=== PATIENT | female | born 1995 | race African-American/Black ===

== ENCOUNTER 2017-03-30 12:14 | Emergency (ER) | payer OTHER ==
[~2017-03-30] VITALS: Ht 167.6 cm; Wt 136.0 kg
[2017-03-30 12:16] VITALS: TEMP 37.2; Ht 167.6 cm; Wt 136.0 kg
[2017-03-30] MEDS ORDERED: SERT-234 PO (12:34)
[2017-03-30] MEDS ORDERED: SERT25TA PO (12:34)
[2017-03-30] MEDS ORDERED: NORE-24 PO (12:34)
[2017-03-30] MEDS ORDERED: SODIUM CHLORIDE 0.9% 1000ML 1,000 ML IV ONE (13:24)
[2017-03-30] MEDS ORDERED: KETOROLAC TROMETHAMINE 30 MG/ML VIAL IV STA (13:24)
[2017-03-30] MEDS ORDERED: SODIUM CHLORIDE 0.9% 1000ML 1,000 ML IV STA (13:24)
[2017-03-30 13:48] LABS: BASO % 0.2 %; BASO ABS # 0.01 K/uL (0-0.2); COMPLETE YES; EOS % 1.1 %; HEMATOCRIT 34.6 % (37-47); IG% 0.2 %; LYMPH % 40.5 %; LYMPH ABS # 2.55 K/uL (1.2-3.4); MEAN CELL VOLUME 82.6 fL (80-100); MEAN CORPUSCULAR HEMOGLOBIN 27.4 pg (25-34); MEAN CORPUSCULAR HGB CONC 33.2 g/dl (32-36); MEAN PLATELET VOLUME 9.7 fL (7.4-10.4); MONO % 4.8 %; NEUT % 53.2 %; PLATELET COUNT 233 K/uL (130-400); RED BLOOD COUNT 4.19 M/uL (4.2-5.4)
[2017-03-30 14:06] LABS: BUN/CREATININE RATIO 8.3 (10-20); CALCIUM 9.1 mg/dl (8.5-10.1); CREATININE 0.9 mg/dl (0.60-1.20); POTASSIUM 4.3 mmol/L (3.5-5.1)
[2017-03-30 14:09] LABS: PREG INTERNAL NEGATIVE QC NEG CLEAR BACKGROUND; PREG INTERNAL POSITIVE QC POS CONTROL LINE
--- NOTE | 2017-03-30 15:39 | EMERGENCY ROOM VISIT NOTE ---
History Report prepared by Salvatore: Jillian Javier Under the Supervision of: Dr. Coleman Jo M.D. First contact with patient: 13:14 Chief Complaint: HEADACHE Stated Complaint: ONGOING HEADACHES, NUMBING HANDS History of Present Illness The patient is a 21 year old female who presents to the Emergency Room with complaints of a constant headache for the past week. Her pain is located behind her eyes and in her temples bilaterally. She rates her pain as a 7/10 in severity. Her symptoms started one morning when she woke up and have been constant ever since. The patient states that she has been experiencing numbness and tingling in her hands bilaterally for the past month. Laying down exacerbates her symptoms. She has been taking ibuprofen for her symptoms without any relief. She had an episode of diffuse abdominal pain yesterday that lasted for 30 minutes and then resolved. She denies any recent trauma or injury. The patient denies visual symptoms, fevers, chills, sore throat, facial pain, neck pain, chest pain, shortness of breath, and any chance of . Source of History: patient Onset: 1 week ago Position: head Symptom Intensity: 7/10 Timing: constant Modifying Factors (Worsening): other (laying down) Associated Symptoms: + abdominal pain, + numbness (in hands bilaterally), No fevers, No chills, No sorethroat, No neck pain, No chest pain, No SOB Review of Systems See HPI for pertinent positives & negatives. A total of 10 systems reviewed and were otherwise negative. Past Medical & Surgical Medical Problems: (1) No significant medical problems Old medical records were reviewed. Nurse's notes were reviewed and I agree with. Family History No pertinent history stated. Social History Smoking Status: Never Smoker Marital Status: single Housing Status: lives with roommate Occupation Status: [employer] student Current/Historical Medications Scheduled Amoxicillin & Pot Clavulanate (Augmentin 875-125 mg), 875 MG PO BID Ethinyl Estradiol/Norethindr (Microgestin 1.5MG/30MG), 1 TAB PO DAILY Sertraline (Zoloft), 25 MG PO DAILY Sertraline (Zoloft), 100 MG PO DAILY Allergies Coded Allergies: No Known Allergies (Unverified , 03/30/17) Physical Exam Vital Signs Date Time Temp Pulse Resp B/P (MAP) Pulse Ox O2 Delivery O2 Flow Rate FiO2 03/30/17 16:58 63 16 174/119 100 03/30/17 14:21 69 18 151/115 98 Room Air 03/30/17 12:16 37.2 72 18 148/97 98 Room Air Physical Exam General: Well developed well nourished non ill appearing young female in no acute distress, breathing comfortably on room air. Normal speech HEENT: Normal cephalic atraumatic. Pupils are equal round and reactive to light. Extraocular movements are intact. Oropharynx is pink with moist mucous membranes. No swelling of the mouth lips or tongue. Neck: Supple with a midline trachea. No meningeal signs or stiffness, no JVD or bruits. No Stridor. Chest: Clear to auscultation bilaterally. No wheezes or rhonchi. No increased work of breathing. Heart: regular rate and rhythm. Abdomen: Soft nontender, nondistended without rebound guarding or rigidity. Extremities: No cyanosis clubbing or edema. No calf tenderness or assymetry Spine/Back. Non tender to palpation. No CVA tenderness Skin: Good turgor without rashes. Neurologic exam: Cranial nerves two through 12 are intact. Motor and sensation are intact and symmetrical throughout. Andi 15. Normal sensation to light though throughout, 2+ symmetrical reflexes in upper and lower extremities. Medical Decision & Procedures ER Provider Diagnostic Interpretation: Radiology results as stated below per my review and radiologist interpretation: HEAD WITHOUT CONTRAST (CT) CLINICAL HISTORY: 21 years-old Female with bilat frontal DELGADILLO. Acute headache without reported trauma. TECHNIQUE: Multiple axial CT images of the head were obtained without contrast. A dose lowering technique was utilized adhering to the principles of ALARA. CT DOSE: 720.95 mGycm COMPARISON: None. FINDINGS: No acute intracranial hemorrhage, midline shift, mass, large territorial ischemia or abnormal extra-axial collection. The calvarium is intact. The mastoid air cells, and middle ear cavities are clear. Mild left sphenoid sinus disease is noted with bubbly secretions. Soft tissues are unremarkable. Orbits are symmetric. IMPRESSION: 1. No acute intracranial abnormality. 2. Mild left sphenoid sinus disease. The above report was generated using voice recognition software. It may contain grammatical, syntax or spelling errors. Electronically signed by: Juaquin Lewis M.D. 03/30/2017 3:49 PM Dictated Date/Time: 03/30/2017 3:47 PM Laboratory Results 03/30/17 13:30 Red Blood Count 4.19, Mean Corpuscular Volume 82.6, Mean Corpuscular Hemoglobin 27.4, Mean Corpuscular Hemoglobin Concent 33.2, Mean Platelet Volume 9.7, Neutrophils (%) (Auto) 53.2, Lymphocytes (%) (Auto) 40.5, Monocytes (%) (Auto) 4.8, Eosinophils (%) (Auto) 1.1, Basophils (%) (Auto) 0.2, Neutrophils # (Auto) 3.36, Lymphocytes # (Auto) 2.55, Monocytes # (Auto) 0.30, Eosinophils # (Auto) 0.07, Basophils # (Auto) 0.01 03/30/17 13:30 Test 03/30/17 13:30 White Blood Count 6.30 K/uL (4.8-10.8) Red Blood Count 4.19 M/uL (4.2-5.4) Hemoglobin 11.5 g/dL (12.0-16.0) Hematocrit 34.6 % (37-47) Mean Corpuscular Volume 82.6 fL (80-100) Mean Corpuscular Hemoglobin 27.4 pg (25-34) Mean Corpuscular Hemoglobin Concent 33.2 g/dl (32-36) Platelet Count 233 K/uL (130-400) Mean Platelet Volume 9.7 fL (7.4-10.4) Neutrophils (%) (Auto) 53.2 % Lymphocytes (%) (Auto) 40.5 % Monocytes (%) (Auto) 4.8 % Eosinophils (%) (Auto) 1.1 % Basophils (%) (Auto) 0.2 % Neutrophils # (Auto) 3.36 K/uL (1.4-6.5) Lymphocytes # (Auto) 2.55 K/uL (1.2-3.4) Monocytes # (Auto) 0.30 K/uL (0.11-0.59) Eosinophils # (Auto) 0.07 K/uL (0-0.5) Basophils # (Auto) 0.01 K/uL (0-0.2) RDW Standard Deviation 41.8 fL (36.4-46.3) RDW Coefficient of Variation 13.8 % (11.5-14.5) Immature Granulocyte % (Auto) 0.2 % Immature Granulocyte # (Auto) 0.01 K/uL (0.00-0.02) Anion Gap 8.0 mmol/L (3-11) Est Creatinine Clear Calc Drug Dose 140.4 ml/min Estimated GFR () 105.9 Estimated GFR (Non- 91.4 BUN/Creatinine Ratio 8.3 (10-20) Calcium Level 9.1 mg/dl (8.5-10.1) Total Bilirubin 0.4 mg/dl (0.2-1) Direct Bilirubin 0.1 mg/dl (0-0.2) Aspartate Amino Transf (AST/SGOT) 29 U/L (15-37) Alanine Aminotransferase (ALT/SGPT) 48 U/L (12-78) Alkaline Phosphatase 39 U/L (45-117) Total Protein 7.8 gm/dl (6.4-8.2) Albumin 3.5 gm/dl (3.4-5.0) Lipase 121 U/L (73-393) Human Chorionic Gonadotropin, Qual NEG (NEG) Laboratory studies as stated above per my review. Medications Administered Medications (Trade) Dose Ordered Sig/Anil Route Start Time Stop Time Status Last Admin Dose Admin Sodium Chloride 1,000 ml @ 999 mls/hr Q1H1M STAT IV 03/30/17 13:24 03/30/17 14:24 DC 03/30/17 13:36 999 MLS/HR Sodium Chloride 1,000 ml @ 200 mls/hr Q5H ONCE IV 03/30/17 13:24 03/30/17 17:31 DC 03/30/17 14:49 200 MLS/HR Ketorolac Tromethamine (Toradol Inj) 30 mg NOW STAT IV 03/30/17 13:24 03/30/17 13:26 DC 03/30/17 13:36 30 MG Amoxicillin/ Clavulanate Potassium (Augmentin Tab) 875 mg ONE ONCE PO 03/30/17 16:30 03/30/17 16:31 DC 03/30/17 16:33 875 MG ED Course 1314: Past medical records reviewed. The patient was evaluated in room C10, and a complete history and physical examination were performed. 1324: Toradol 30 mg IV, NSS 1000 ml @ 200 mls/hr IV, NSS 1000 ml @ 999 mls/hr IV 1520: I updated the patient. She still has not had her CT. She is feeling better and requesting food. 1621: I reassessed the patient at this time. She is feeling better and resting comfortably. I discussed the results and treatment plan with the patient. I answered all pertaining questions that she had. She expressed understanding and verbalized agreement. The patient will be discharged home. 1630: Augmentin 875 mg PO Medical Decision Differential diagnoses includes migraine, tension headache, intracranial process , hemorrhage, electrolyte or metabolic abnormality. This patient comes in as described above. She is placed in room C 10. She's been having a headache for several days on both sides of her head she also has some tingling in her hands bilaterally she looks well on exam she appears in no distress she is her normal neurologic exam. She is nontoxic and non-lethargic. She has nothing to suggest meningitis or encephalitis. Her sinuses are not significant only tender. Blood work was obtained. She was hydrated with IV normal saline bolus as well as Toradol 30 mg IV. Her symptoms resolved. She has no white count or fever to suggest infection. She's had no acute electrolyte or metabolic abnormalities. She's no visual changes or anything to suggest ocular problems such as glaucoma or pseudotumor. I do not suspect aneurysm or venous sinus thrombosis. CAT scan of her head was unremarkable with exception of some possible mild sinus disease. I did put her on Augmentin to cover the possibility of this. She is to rest and drink plenty of fluids. She has no acute electrolyte or metabolic abnormalities. I encouraged to follow -up with [facility] for recheck. Her blood pressure was noted to be elevated however she tells me that is typical for her while she is in the hospital she is always elevated and it comes down. I do not think this likely causing her symptoms. She should have this rechecked when she is calm at her doctor's office and return if: Worsening symptoms, fever or chills, numbness wheezes, any new problems or concerns. She is happy the plan and discharged home. Medication Reconcilliation Current Medication List: was personally reviewed by me Blood Pressure Screening Patient's blood pressure: Elevated blood pressure Blood pressure disposition: Referred to PCP Impression Primary Impression: Frontal headache Additional Impression: Sinusitis Scribe Attestation The scribe's documentation has been prepared under my direction and personally reviewed by me in its entirety. I confirm that the note above accurately reflects all work, treatment, procedures, and medical decision making performed by me. Departure Information Dispostion Home / Self-Care Prescriptions Amoxicillin & Pot Clavulanate (Augmentin 875-125 mg) 1 Tab Tab 875 MG PO BID for 10 Days, #20 TAB Prov: Coleman Jo M.D. 03/30/17 Referrals No Doctor, Assigned (PCP) Forms HOME CARE DOCUMENTATION FORM, IMPORTANT VISIT INFORMATION Patient Instructions My [facility] Additional Instructions Rest. Drink plenty of fluids. Use ibuprofen 600 mg every 6 hours, take with food Use Augmentin 875 mg twice a day for 10 daysantibiotic for possible sinus disease Return to the ER if: Increasing pain, fever or chills, worsening of symptoms, numbness or weakness, neck pain, any new problems or concerns [facility]. You should also be blood pressure rechecked as it was found to be elevated today. Problem Qualifiers Additional Impression: Sinusitis Sinusitis location: unspecified location Chronicity: unspecified Qualified Codes: J32.9 - Chronic sinusitis, unspecified
--- NOTE | 2017-03-30 15:50 | DIAGNOSTIC IMAGING REPORT ---
HEAD WITHOUT CONTRAST (CT) CLINICAL HISTORY: 21 years-old Female with bilat frontal DELGADILLO. Acute headache without reported trauma. TECHNIQUE: Multiple axial CT images of the head were obtained without contrast. A dose lowering technique was utilized adhering to the principles of ALARA. CT DOSE: 720.95 mGycm COMPARISON: None. FINDINGS: No acute intracranial hemorrhage, midline shift, mass, large territorial ischemia or abnormal extra-axial collection. The calvarium is intact. The mastoid air cells, and middle ear cavities are clear. Mild left sphenoid sinus disease is noted with bubbly secretions. Soft tissues are unremarkable. Orbits are symmetric. IMPRESSION: 1. No acute intracranial abnormality. 2. Mild left sphenoid sinus disease. The above report was generated using voice recognition software. It may contain grammatical, syntax or spelling errors. Electronically signed by: Juauqin Lewis M.D. 03/30/2017 3:49 PM Dictated Date/Time: 03/30/2017 3:47 PM
[2017-03-30] MEDS ORDERED: AMOX875T PO (16:27)
[2017-03-30] MEDS ORDERED: AMOXICILLIN/CLAVULANATE TAB 875 MG TAB PO ONE (16:30)
[2017-03-30 16:58] VITALS: BP 174/119; PULSE 63; O2SAT 100
== END 2017-03-30 16:59 | disposition home or self-care (01) ==
LOC: C.EDB 12:16 → C.EDC 16:59
DX: R51 Headache (principal); J32.9 Chronic sinusitis, unspecified; Z79.3 Long term (current) use of hormonal contraceptives; Z79.899 Other long term (current) drug therapy

== ENCOUNTER 2017-08-31 12:26 | Emergency (ER) | payer OTHER ==
[~2017-08-31] VITALS: Ht 167.6 cm; Wt 136.0 kg
[~2017-08-31 12:26] MED LIST: NORE-104 PO; SERT-234 PO; SERT25TA PO
[2017-08-31 12:28] VITALS: TEMP 37; Ht 167.6 cm; Wt 136.0 kg
[2017-08-31] MEDS ORDERED: SPIR100T PO (12:48)
[2017-08-31] MEDS ORDERED: SODIUM CHLORIDE 0.9% 1000ML 1,000 ML IV STA (13:00)
[2017-08-31] MEDS ORDERED: KETOROLAC TROMETHAMINE 30 MG/ML VIAL IV STA (13:00)
--- NOTE | 2017-08-31 13:15 | EMERGENCY ROOM VISIT NOTE ---
History Report prepared by Salvatore: Tomi Black Under the Supervision of: Dr. Coleman Jo M.D. First contact with patient: 12:51 Chief Complaint: HEADACHE Stated Complaint: DIZZY,HEADACHE,FEEL LIKE FAINTING WHEN STANDING Nursing Triage Summary: pt to the ED with c/o DELGADILLO's with dizzy spells and feeling near syncopal when standing and "weird brain zaps" for 2-3 wks History of Present Illness The patient is a 22 year old female who presents to the Emergency Room with complaints of constant headache beginning two weeks ago. The patient localizes the pain to the temples. She states "I have been experiencing weird brain zaps" . She describes these as "feeling a few beats, and then it drops". The patient also complains of balance problems, dizziness, and lightheadedness. Her lightheadedness is worsened with standing. She has a history of carpal tunnel and has chronic weakness of her fingers which is unchanged. The patient denies chest pain, SOB, abdominal pain, black or bloody stool, vaginal bleeding, nausea , vomiting, diarrhea, or fevers. She has been eating normally. She has a history of headaches but states that her current pain is worse. The patient denies chance of . She notes that she recently had a cold. She denies recent travel. The patient has a history of anxiety and depression. She notes that she was recently weaned off of a medication for depression. She states that she has felt normal, and denies any suicidal thoughts. The patient notes that she has been very stressed with school recently. Source of History: patient Onset: Two weeks ago Position: head Quality: other ("weird brain zaps") Timing: constant Associated Symptoms: No fevers, No chest pain, No SOB, No nausea, No vomiting, No abdominal pain, No melena, No hematochezia, No diarrhea Note: The patient also complains of balance problems, dizziness, and lightheadedness. The patient denies vaginal bleeding. Review of Systems See HPI for pertinent positives & negatives. A total of 10 systems reviewed and were otherwise negative. Past Medical & Surgical Medical Problems: (1) Anxiety (2) Depression (3) No significant medical problems Old medical records were reviewed. Nurse's notes were reviewed and I agree with. Family History No pertinent family history stated. Social History Smoking Status: Never Smoker Marital Status: single Housing Status: lives with roommate Occupation Status: [employer] student Current/Historical Medications Scheduled Ethinyl Estradiol/Norethindr (Microgestin 1.5MG/30MG), 1 TAB PO DAILY Spironolactone (Aldactone), 100 MG PO QAM Allergies Coded Allergies: No Known Allergies (Unverified , 08/31/17) Physical Exam Vital Signs Date Time Temp Pulse Resp B/P (MAP) Pulse Ox O2 Delivery O2 Flow Rate FiO2 08/31/17 16:13 76 19 141/72 98 Room Air 08/31/17 14:30 77 17 142/111 99 Room Air 08/31/17 12:28 37.0 97 18 143/91 97 Physical Exam General: Non-ill appearing young female in no acute distress. HEENT: Normal cephalic atraumatic. Pupils are equal round and reactive to light. Extraocular movements are intact. Oropharynx is pink with moist mucous membranes. No swelling of the mouth lips or tongue. Neck: Supple with a midline trachea. No meningeal signs or stiffness, no JVD or bruits. No Stridor. Chest: Clear to auscultation bilaterally. No wheezes or rhonchi. No increased work of breathing. Heart: regular rate and rhythm. Abdomen: Soft nontender, nondistended without rebound guarding or rigidity. Extremities: No cyanosis clubbing or edema. No calf tenderness or assymetry Spine/Back. Non tender to palpation. No CVA tenderness Skin: Good turgor without rashes. Neurologic exam: Cranial nerves two through 12 are intact. Motor and sensation are intact and symmetrical throughout. No tremor. Finger to nose intact. Medical Decision & Procedures Laboratory Results 08/31/17 13:15 Red Blood Count 4.29, Mean Corpuscular Volume 81.4, Mean Corpuscular Hemoglobin 28.0, Mean Corpuscular Hemoglobin Concent 34.4, Mean Platelet Volume 9.8, Neutrophils (%) (Auto) 58.6, Lymphocytes (%) (Auto) 34.9, Monocytes (%) (Auto) 4.7, Eosinophils (%) (Auto) 1.6, Basophils (%) (Auto) 0.1, Neutrophils # (Auto) 4.10, Lymphocytes # (Auto) 2.44, Monocytes # (Auto) 0.33, Eosinophils # (Auto) 0.11, Basophils # (Auto) 0.01 08/31/17 13:15 Test 08/31/17 13:15 White Blood Count 7.00 K/uL (4.8-10.8) Red Blood Count 4.29 M/uL (4.2-5.4) Hemoglobin 12.0 g/dL (12.0-16.0) Hematocrit 34.9 % (37-47) Mean Corpuscular Volume 81.4 fL (80-100) Mean Corpuscular Hemoglobin 28.0 pg (25-34) Mean Corpuscular Hemoglobin Concent 34.4 g/dl (32-36) Platelet Count 252 K/uL (130-400) Mean Platelet Volume 9.8 fL (7.4-10.4) Neutrophils (%) (Auto) 58.6 % Lymphocytes (%) (Auto) 34.9 % Monocytes (%) (Auto) 4.7 % Eosinophils (%) (Auto) 1.6 % Basophils (%) (Auto) 0.1 % Neutrophils # (Auto) 4.10 K/uL (1.4-6.5) Lymphocytes # (Auto) 2.44 K/uL (1.2-3.4) Monocytes # (Auto) 0.33 K/uL (0.11-0.59) Eosinophils # (Auto) 0.11 K/uL (0-0.5) Basophils # (Auto) 0.01 K/uL (0-0.2) RDW Standard Deviation 40.0 fL (36.4-46.3) RDW Coefficient of Variation 13.5 % (11.5-14.5) Immature Granulocyte % (Auto) 0.1 % Immature Granulocyte # (Auto) 0.01 K/uL (0.00-0.02) Anion Gap 8.0 mmol/L (3-11) Est Creatinine Clear Calc Drug Dose 139.2 ml/min Estimated GFR () 105.2 Estimated GFR (Non- 90.8 BUN/Creatinine Ratio 10.2 (10-20) Calcium Level 9.2 mg/dl (8.5-10.1) Total Bilirubin 0.2 mg/dl (0.2-1) Direct Bilirubin mg/dl (0-0.2) Aspartate Amino Transf (AST/SGOT) 21 U/L (15-37) Alanine Aminotransferase (ALT/SGPT) 26 U/L (12-78) Alkaline Phosphatase 46 U/L (45-117) Total Protein 8.3 gm/dl (6.4-8.2) Albumin 3.4 gm/dl (3.4-5.0) Lipase 110 U/L (73-393) Thyroid Stimulating Hormone (TSH) 3.750 uIu/ml (0.300-4.500) Human Chorionic Gonadotropin, Qual NEG (NEG) Chemistry Specimen Hemolysis Laboratory studies as stated above per my review. Medications Administered Medications (Trade) Dose Ordered Sig/Anil Route Start Time Stop Time Status Last Admin Dose Admin Sodium Chloride 1,000 ml @ 999 mls/hr Q1H1M STAT IV 08/31/17 13:00 08/31/17 14:00 DC 08/31/17 13:14 999 MLS/HR Ketorolac Tromethamine (Toradol Inj) 30 mg NOW STAT IV 08/31/17 13:00 08/31/17 13:01 DC 08/31/17 13:14 30 MG ECG Per My Interpretation Indication: other (dizziness) Rate (beats per minute): 93 Rhythm: normal sinus Findings: no acute ischemic change, no ectopy, other (Poor baseline. ) ED Course 1252: Past medical records reviewed. The patient was evaluated in room A12B, and a complete history and physical examination were performed. 1300: Ordered Toradol Inj 30 mg IV, Sodium Chloride 1000 ml @ 999 mls/hr IV. 1556: Upon reevaluation, the patient is resting comfortably. I discussed the results and treatment plan with her. She verbalized agreement of the treatment plan. The patient was discharged home. Medical Decision Differentials include, but are not limited to; dizziness, migraine, dehydration , anxiety, cardiac disease, medication side effect, and electrolyte or metabolic abnormality. This patient comes in as described above. She was placed in room A12. She has dizziness with standing and gets headaches. She looks well on exam is non-ill- appearing. She has a normal neurologic exam. I have reviewed her records. I saw her in March for headaches and a CAT scan workup at that time was negative. She is afebrile and she has nothing to suggest meningitis or encephalitis. She has just weaned down from her depression medicine and this could possibly be causing her symptoms. she denies feeling depressed or suicidal or homicidal. IV access established was hydrated normal saline. CAT scan of her head was obtained as well as multiple blood testing. She was reassessed frequently. She felt better after receiving IV Toradol and fluids. EKG is unremarkable. Blood work is unremarkable. She will be discharged home. She should return if: recurrence of symptoms, worsening symptoms, any new problems or concerns. She is happy the plan and discharged to [facility]. Head Trauma GCS Score: 15 Medication Reconcilliation Current Medication List: was personally reviewed by me Blood Pressure Screening Patient's blood pressure: Elevated blood pressure Blood pressure disposition: Elevated BP felt to be situational Impression Primary Impression: Dizziness Additional Impressions: Medication side effect Headache Scribe Attestation The scribe's documentation has been prepared under my direction and personally reviewed by me in its entirety. I confirm that the note above accurately reflects all work, treatment, procedures, and medical decision making performed by me. Departure Information Dispostion Home / Self-Care Referrals No Doctor, Assigned (PCP) Forms HOME CARE DOCUMENTATION FORM, IMPORTANT VISIT INFORMATION Patient Instructions My [facility] Additional Instructions Rest. Drink plenty of fluids. May use ibuprofen 400 mg every 6 hours if needed Return if: Worsening symptoms, fever or chills, chest pain, shortness of breath , any new problems or concerns Problem Qualifiers
[2017-08-31 13:40] LABS: BASO % 0.1 %; BASO ABS # 0.01 K/uL (0-0.2); EOS % 1.6 %; EOS ABS # 0.11 K/uL (0-0.5); HEMATOCRIT 34.9 % (37-47); IG# 0.01 K/uL (0.00-0.02); LYMPH % 34.9 %; LYMPH ABS # 2.44 K/uL (1.2-3.4); MEAN CELL VOLUME 81.4 fL (80-100); MEAN CORPUSCULAR HGB CONC 34.4 g/dl (32-36); MEAN PLATELET VOLUME 9.8 fL (7.4-10.4); MONO % 4.7 %; MONO ABS # 0.33 K/uL (0.11-0.59); NEUT % 58.6 %; PLATELET COUNT 252 K/uL (130-400); RED CELL DISTRIBUTION WIDTH CV 13.5 % (11.5-14.5)
[2017-08-31 14:07] LABS: ALBUMIN 3.4 gm/dl (3.4-5.0); ALT/SGPT 26 U/L (12-78); BLOOD UREA NITROGEN 9 mg/dl (7-18); CALCIUM 9.2 mg/dl (8.5-10.1); CARBON DIOXIDE 23 mmol/L (21-32); GLUCOSE 109 mg/dl (70-99); LIPASE 110 U/L (73-393); POTASSIUM 4.2 mmol/L (3.5-5.1); SODIUM 136 mmol/L (136-145)
[2017-08-31 14:31] LABS: ALKALINE PHOSPHATASE 46 U/L (45-117); AST/SGOT 21 U/L (15-37); TOTAL PROTEIN 8.3 gm/dl (6.4-8.2)
[2017-08-31 16:13] VITALS: BP 141/72; PULSE 76; O2SAT 98
== END 2017-08-31 16:19 | disposition home or self-care (01) ==
LOC: C.EDB 12:28 → C.EDA 16:19
DX: R42 Dizziness and giddiness (principal); R51 Headache; T43.205A Adverse effect of unspecified antidepressants, initial encounter; Z79.3 Long term (current) use of hormonal contraceptives; Z86.59 Personal history of other mental and behavioral disorders